=== PATIENT | female | born 1930 | race Hispanic/Latino ===

== ENCOUNTER 2017-12-07 14:05 | Inpatient (IN) | payer MEDICARE, OTHER ==
[2017-12-07 15:05] LABS: INR-International Normal Ratio 1.3; PTT 31.7 SEC (22.9-36.1); Prothrombin Time 16.1 SEC (12.0-14.7)
[2017-12-07 15:09] LABS: Hemoglobin 9.7 g/dL (12.0-16.0); Mean Corpuscular Hemoglobin 31.1 pg (27.0-31.0); Mean Platelet Volume 13.9 fL (7.4-10.4); Platelet Count 15 thou/uL (130-400); RBC Distribution Width 13.4 % (11.5-14.5); Red Blood Cell (RBC) Count 3.12 mill/uL (4.20-5.40); White Blood Cell (WBC) Count 22.9 thou/uL (4.8-10.8)
[2017-12-07] MEDS ORDERED: Ondansetron HCl/PF 4 MG/2 ML Vial ONE (15:11)
[2017-12-07 15:19] LABS: ALT (SGPT) Less than 7 U/L (8-55); AST (SGOT) 15 U/L (5-34); Albumin 3.9 g/dL (3.4-4.8); Alkaline Phosphatase 66 U/L (40-150); Anion Gap 15 mmol/L (10-20); BUN (Urea Nitrogen) 48 mg/dL (9.8-20.1); Bilirubin, Total 0.5 mg/dL (0.2-1.2); CK (CPK) 38 U/L (29-168); Calc. Creatinine Clearance 0 mL/min (70-130); Calcium 9.4 mg/dL (7.8-10.44); Carbon Dioxide 29 mmol/L (23-31); Chloride 92 mmol/L (98-107); Estimated GFR-MDRD 17; Globulin 3.5 g/dL (2.4-3.5); Glucose 126 mg/dL (83-110); Lipase Less than 4 U/L (8-78); Potassium 5.3 mmol/L (3.5-5.1); Protein, Total 7.4 g/dL (6.0-8.3); Sodium 131 mmol/L (136-145)
--- NOTE | 2017-12-07 15:21 | RAD ---
CHEST 1 VIEW: Date: 12/07/17 HISTORY: 87-year-old female with altered mental status, with abdominal pain, nausea, body aches, chills, and d ifficulty and frequent urination. FINDINGS: Monitor leads overlie the chest. There is cardiomegaly with bilateral vascular congestion, interstiti al edema, and pleural effusions, evidence for congestive heart failure. IMPRESSION: Evidence for congestive heart failure. POS: MAITE
[2017-12-07 15:23] LABS: CKMB 2.2 ng/mL (0-6.6)
[2017-12-07 15:24] LABS: Band 5 % (5-11); Lymphocytes 10 % (21-51); MDiff Complete? YES; Monocytes 23 % (0-10); Myelocyte 1 % (0-0); Neutrophil 61 % (42-75); PLT Morphology Comment Appears Decreased; Polychromasia SLIGHT = 2-3 cells (100X) (0-2/hpf)
[2017-12-07 15:29] LABS: Troponin I 0.601 ng/mL (< 0.028)
[2017-12-07 17:13] LABS: Bilirubin Small (Negative); Blood, Urine Negative (Negative); Clarity CLOUDY (Clear); Glucose, Urine (Dipstick) Negative (Negative); Leukocyte Moderate (Negative); Nitrite Negative (Negative); Protein, Urine (Dipstick) 100 mg/dL (Neg-Trace); Specific Gravity, Urine 1.022 (1.002-1.036); Urobilinogen 0.2 mg/dL (0.2-1.0); pH, Urine 5.5 (5.0-9.0)
[2017-12-07 17:15] LABS: Pathc Cast-AUWi Flag 2.71 (0-2.49); Squamous Epithelial 0-3 HPF (0-3); Yeast-AUWi Flag 126.9 (0-25.0)
[2017-12-07] MEDS ORDERED: Furosemide 40 MG/4 ML VIAL ONE (17:15)
[2017-12-07 17:25] LABS: Bacteria/HPF 1+ HPF (None Seen); Hyaline Casts/LPF NONE SEEN LPF (0-3 Hyaline); Yeast-All Forms 1+ HPF (None Seen)
[2017-12-07 17:26] LABS: Manual Microscopic Reviewed? No Path Casts Seen
--- NOTE | 2017-12-07 17:49 | CT ---
CT HEAD NONCONTRAST: 12/07/17 HISTORY: Altered mental status. Headache. FINDINGS: No comparison. There is no evidence of acute intracranial hemorrhage or infarct. A large wedge shaped area of decreased density through the posterior aspect of the right temporal lobe has the appearance of encephalomalacia. Chronic ischemic small vessel disease is apparent within the periventricular wh ite matter of each cerebral hemisphere. There is no mass effect or shift of midline structures. Chron ic appearing mucosal thickening is partially visualized at the inferior aspect of the left mastoid ai r cells. Small mucous retention cyst within the sphenoid sinus. 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 No acute intracranial abnormalities are demonstrated on noncontrast CT head. POS: H
[2017-12-07 18:24] LABS: Critical Call Chem Troponin I RESULT DECREASING; Troponin I 0.511 ng/mL (< 0.028)
--- NOTE | 2017-12-07 19:15 | CT ---
ABDOMEN AND PELVIC CT SCAN WITHOUT IV CONTRAST: 12/07/17 HISTORY: 87-year-old female with history of abdominal pain, nausea, bodyaches, chills with difficulty urinatin g and frequent urination. There is evidence of cardiomegaly with bilateral pleural effusions and some parenchymal changes in th e lower lobes probably related to some atelectasis. Probably representing some degree of congestive h eart failure. There is a moderate sized hiatal hernia. There are multiple opacities in the dependent portion of the gallbladder most consistent with gallstones without evidence for significant gallbladd er wall thickening or pericholecystic abnormal fat stranding. The kidneys are small bilaterally witho ut evidence of renal hydronephrosis. There is an approximately 1.8 cm diameter cyst off the posterior aspect of the upper pole of the left kidney. No evidence for large or small bowel obstruction. There is some surgical clips in the pelvis including around the region of the ileocecal valve and adjacent to the cecum. No CT evidence for acute appendicitis. Scattered colonic diverticulosis without acute diverticulitis. No renal calculus or acute obstruction. The visualized bladder appears unremarkabl e. IMPRESSION: Moderate bilateral pleural effusions and bibasilar pulmonary parenchymal changes with evidence for ca rdiomegaly which certainly can be seen in congestive heart failure. Multiple gallstones within the ga llbladder without evidence for ductal dilatation or overt gallbladder wall thickening or pericholecys tic fat stranding. No renal calculus or obstruction. Left upper pole renal cyst. Sigmoid colon div erticulosis without diverticulitis. No CT evidence for acute appendicitis. Other findings as above. POS: [facility]ITE
[2017-12-07] MEDS ORDERED: Ondansetron HCl/PF 4 MG/2 ML Vial IVP PRN (20:49)
[2017-12-07] MEDS ORDERED: Sodium Chloride 0.9% 1,000 ML IV SCH (20:49)
[2017-12-07] MEDS ORDERED: Ondansetron ODT 4 MG TAB SL PRN (20:49)
--- NOTE | 2017-12-07 21:06 | CON ---
DATE OF CONSULTATION: 12/07/2017 CONSULTING PHYSICIAN: Nathalia Hoffman M.D. REQUESTING PHYSICIAN: ER physician. REASON FOR CONSULTATION: Recurrent urinary tract infection, mental status change in a patient with m oderately advanced chronic kidney disease. IMPRESSION: 1. Acute on chronic kidney disease. This is likely hemodynamically mediated in the context of cardi orenal syndrome plus or minus cytokine-mediated injury. 2. Hyponatremia, possibly dilutional hyponatremia in the context of congestive heart failure. 3. Hyperkalemia related to advanced chronic kidney disease. 4. Recurrent urinary tract infection on several antibiotics. 5. Mental status change, possibly related to recurrent urinary tract infection. PLAN: 1. Urine cultures have been sent, but I would not be surprised if the culture does not grow out any significant organism having been on several antibiotics; therefore, we will recommend IV antibiotics based on the sensitivity from the urine culture of 2017 or thereabouts. 2. Renally dose all medications and avoid potentially nephrotoxic agents. 3. The patient likely to benefit from gentle diuresis. 4. There is no emergent indication for dialytic intervention and hopefully will avoid this in this p atient that is frail and advancing age. HISTORY OF PRESENT ILLNESS: This is an 87-year-old female patient, who was recently in my office wit h the complaint of recurrent urinary tract infection symptoms and also some difficulty with urination . Patient was started on amoxicillin, Macrobid, and developed some dry heaves at home. Due to the d ry heaves, has not been eating very well with reduction of urinary output. Home health nurse w ent to a possible catheterization, but patient refused, and mental status change was also noted. Bola frances was then taken to have the patient present to the ER for further management. On presentation, patient was noted with some electrolyte abnormalities as well as elevated BNP. The renal function se ems to have declined a little bit. Given the constellation of these findings, decision has been take n to involve Renal in the management of this case. PAST MEDICAL HISTORY: Significant for, 1. Myelodysplastic syndrome with persistent thrombocytopenia. 2. Hypertension. 3. Moderately advanced chronic kidney disease with a baseline creatinine of about 2. MEDICATIONS: Medications have been reviewed and as documented on [facility]. ALLERGIES: Could not be substantiated at this point. FAMILY HISTORY: Not significant related to presenting illness. SOCIAL HISTORY: Denies alcohol, tobacco, or illicit drug use. REVIEW OF SYSTEMS: As documented in the body of the history. All the other systems were reviewed an d found not to be significantly related to presenting illness. PHYSICAL EXAMINATION: GENERAL: The patient was found to be ill-looking with stable vital signs. Afebrile. HEENT: Remarkable for dry mucosa. CARDIOVASCULAR SYSTEM: First and second heart sounds were heard. RESPIRATORY SYSTEM: Clear to auscultation anteriorly. DIGESTIVE SYSTEM: Revealed an obese abdomen. EXTREMITIES: Showed peripheral edema. NEUROLOGIC: Alert, no lateralizing signs. LYMPHATICS: No peripheral lymphadenopathy. SKIN: Did reveal evidence of bruises likely in the context of thrombocytopenia. SUMMARY: An 87-year-old female patient with advanced chronic kidney disease, who does have issues wi th recurrent urinary tract infection, presented here and noted to have acute on chronic kidney diseas e. Thank you for this consultation. We will follow with you.
[2017-12-07 21:07] LABS: Critical Call Chem Troponin I RESULT DECREASING; Troponin I 0.477 ng/mL (< 0.028)
[2017-12-07] MEDS ORDERED: Furosemide 100 MG/10 ML VIAL SLOW IVP SCH (23:30)
[2017-12-08] MEDS ORDERED: Vancomycin HCl 1.25 GM in Sodium Chloride 0.9% 250 ML 250 ML IVPB SCH (01:15)
[2017-12-08] MEDS ORDERED: Fluconazole In NaCl,Iso-Osm 200 MG in Premix Bag 1 BAG IVPB SCH (01:15)
--- NOTE | 2017-12-08 02:01 | HP ---
REASON FOR ADMISSION: Acute respiratory failure with hypoxia, sepsis, urinary tract infection, possible DIC, acute kidney injury with history of chronic kidney disease, CHF exacerbation, demand ischemia, severe thrombocytopenia likely due to myelodysplastic disorder. HISTORY OF PRESENTING ILLNESS: Please note majority of this history is obtained by talking to ER physician, Dr. Sloan's consultation note, as patient is not oriented and barely tells me her name. Per ER records, patient was brought to emergency room for complaints of abdominal pain, nausea, body aches, chills, and frequency of urination. She was being recently treated for urinary tract infection and had taken Macrobid and Bactrim for the same. She has had some allergic reaction to the same. She has also recently followed up with Dr. Sloan as well. Patient also developed altered mentation at home and was essentially brought here for further evaluation. Lab work revealed a platelet count of 15, white count of 22, elevated PT of 16, BUN 48, creatinine 2.6. BNP of 2727, troponin of 0.6, and UA being positive for UTI. PAST MEDICAL AND SURGICAL HISTORY: Likely chronic kidney disease, recurrent urinary tract infections, myelodysplastic syndrome, hypertension, CKD stage 3, 4 likely old right posterior middle cerebral artery infarct, cholelithiasis, sigmoid diverticulosis. CURRENT MEDICATIONS: Per records, patient is on alprazolam 0.25 mg twice daily p.r.n., amitriptyline 50 mg p.o. at bedtime, was on amoxicillin 500 mg p.o. q.12 hourly for likely urinary tract infection, Coreg 6.25 mg twice daily, Zyrtec 10 mg p.r.n., vitamin D 3000 units p.o. twice daily, vitamin B12 of 1000 mcg p.o. daily, escitalopram 10 mg p.o. q.a.m., Synthroid 150 mcg p.o. daily, magnesium 250 mg p.o. at bedtime, multivitamin 1 tab once daily, omeprazole 20 mg daily, Zofran p.r.n., Crestor 5 mg p.o. q.a.m., Senokot 8.6 mg p.o. daily. ALLERGIES: CODEINE. PERSONAL HISTORY: Cannot be obtained as patient is not oriented. FAMILY HISTORY: Cannot be obtained as patient is not oriented. REVIEW OF SYSTEMS: Cannot be obtained as patient is not oriented. PHYSICAL EXAMINATION: GENERAL: Patient is an 87-year-old female who is currently in moderate respiratory distress. VITAL SIGNS: Blood pressure 120/80, pulse 78 per minute, respiratory rate 22 per minute, temperature 97.6 degrees Fahrenheit, saturating 94% on 3 liters nasal cannula. NECK: Supple. No elevated JVD. HEENT: Extraocular muscles intact. Pupils reacting to light. Oral cavity, mucous membranes are dry. No exudates or congestion. CARDIOVASCULAR SYSTEM: S1, S2 heard. S3 plus. RESPIRATORY SYSTEM: Air entry 1+ bilateral. Scattered rales plus bilateral rhonchi plus bilateral. ABDOMEN: Soft, bowel sounds heard. No tenderness, rigidity, or guarding. EXTREMITIES: Patient has multiple contusions over right suprascapular area. She also has some contusions in the right line area per nurse, has 2+ peripheral edema. Patient has extremely tender to touch her lower extremities. VASCULAR SYSTEM: Peripheral pulses are 1+ bilateral. No ischemic ulcerations or gangrene. CENTRAL NERVOUS SYSTEM: Patient has reflex withdrawal for both lower extremities on Babinski strokes. No gross focal signs seen. Patient is encephalopathic at present, barely responds to her name. PSYCHIATRIC: Cannot be assessed due to patient's current cognitive status. LABORATORY DATA AND X-RAY FINDINGS: Urinalysis shows moderate leukocyte esterase, greater than 50 wbcs, 1+ bacteria and yeast. PT 16, INR 1.3. Sodium 131, potassium 5.3, BUN 48, creatinine 2.6. Serum glucose 126. Liver enzymes within normal limits. CK-MB 2.2, troponin I 0.60. BNP is 2727. Albumin is 3.9. Lipase is less than 4. White count of 22.9, H&H 9 and 31, MCV is 100, platelet count is 15 with 61% neutrophils with 5% bands with reversal of lymphocytes-monocytes ratio with 10% lymphocytes and 23% monocytes. EKG done shows atrial fibrillation at 103 beats per minute. There is also T inversions seen in anterolateral leads. There is Q-wave seen in V1, V2, V3. CLINICAL IMPRESSION AND PLAN: Patient will be admitted to the telemetry for sepsis; urinary tract infection; severe thrombocytopenia likely due to underlying myelodysplastic disease versus disseminated intravascular coagulation ; acute kidney injury on top of chronic kidney disease stage 3, 4; acute congestive heart failure exacerbation, it is unclear if this is new; demand ischemia; acute respiratory failure with hypoxia. She was given 40 mg of Lasix in the ER and will give one dose of 80 mg Lasix x1 dose in view of patient requiring oxygen and is in moderate respiratory distress. We will also continue 40 mg IV q.6 hourly x4 doses. She will be on broad-spectrum antibiotic including antifungal with fluconazole. We will place her on meropenem, vancomycin, and fluconazole for now. Blood and urine cultures have been obtained, and we will follow up on that. Echo with 2D Doppler for LV function, ultrasound venous Doppler to rule out deep venous thrombosis at disseminated intravascular coagulation panel. The patient's overall prognosis is guarded at present. I have tried to call Ms. Grisel Price, patient's POA and daughter. The number to reach is [phone] and being unable to reach her. I have tried calling Ms. Abby Dodd at [phone], her second daughter and have not been able to reach her on this as well. Like I said before, her overall prognosis is guarded with multiple organ involvements at present. She is also encephalopathic at present. The two daughters have informed patient's nurse that they want her mom to be DO NOT RESUSCITATE and the same will be honored. They will be bringing her advance directives/document shortly from home. A consult has been placed for Dr. Escobar and Dr. Sloan and we will also consult Dr. Payne for help with her sepsis with acute congestive heart failure, the combination with acute kidney injury as well. Please note, I have seen and examined patient on 12/07/2017. NURYS
[2017-12-08 02:02] LABS: Fibrinogen 500 mg/dL (253-463)
[2017-12-08 02:03] LABS: INR-International Normal Ratio 1.3; PTT 34.4 SEC (22.9-36.1); Prothrombin Time 16.4 SEC (12.0-14.7)
[2017-12-08 02:04] LABS: D-Dimer Test 1.88 *mcg/mL (0.27-0.43)
[2017-12-08 02:06] LABS: FSP-Qualitative ABNORMAL (Normal); FSP-Semiquantitative >=5 & <20 mcg/mL (Less than 5)
[2017-12-08 02:07] LABS: Platelet Count 35 thou/uL (130-400)
[2017-12-08 04:46] LABS: Mean Corpuscular HGB CONC 30.6 g/dL (32.0-36.0); Mean Corpuscular Hemoglobin 31.4 pg (27.0-31.0); Mean Platelet Volume 13.1 fL (7.4-10.4); Platelet Count 22 thou/uL (130-400); RBC Distribution Width 13.3 % (11.5-14.5); Red Blood Cell (RBC) Count 2.88 mill/uL (4.20-5.40); White Blood Cell (WBC) Count 22.9 thou/uL (4.8-10.8)
[2017-12-08 04:49] LABS: Band 2 % (5-11); Large Platelets SLIGHT; Lymphocytes 13 % (21-51); MDiff Complete? YES; Metamyelocyte 1 % (0-0); Monocytes 18 % (0-10); Myelocyte 1 % (0-0); Neutrophil 65 % (42-75); PLT Morphology Comment Appears Decreased; Vacuoles SLIGHT
[2017-12-08 05:16] LABS: ALT (SGPT) Less than 7 U/L (8-55); AST (SGOT) 14 U/L (5-34); Albumin 3.4 g/dL (3.4-4.8); Alkaline Phosphatase 59 U/L (40-150); Anion Gap 15 mmol/L (10-20); BUN (Urea Nitrogen) 51 mg/dL (9.8-20.1); Bilirubin, Total 0.4 mg/dL (0.2-1.2); Calc. Creatinine Clearance 20 mL/min (70-130); Calcium 8.6 mg/dL (7.8-10.44); Carbon Dioxide 25 mmol/L (23-31); Chloride 96 mmol/L (98-107); Estimated GFR-MDRD 18; Glucose 100 mg/dL (83-110); Potassium 4.6 mmol/L (3.5-5.1); Protein, Total 6.4 g/dL (6.0-8.3); Sodium 131 mmol/L (136-145)
[2017-12-08] MEDS ORDERED: Sodium Chloride 0.9% 10 ML ONE ×2 (05:42→20:45)
[2017-12-08] MEDS: Levothyroxine 150 MCG TAB PO SCH (05:53)
[2017-12-08] MEDS: Furosemide 40 MG/4 ML VIAL SLOW IVP SCH ×4 (05:53→23:21)
[2017-12-08] MEDS ORDERED: Meropenem 500 MG in Sodium Chloride 0.9% 100 ML IVPB SCH (06:00)
[2017-12-08] MEDS ORDERED: MEROPENEM IVPB SCH (06:00)
--- NOTE | 2017-12-08 07:44 | ULT ---
BILATERAL LOWER EXTREMITY VENOUS DUPLEX ULTRASUND INCLUDING COLOR AND SPECTRAL DOPPLER IMAGING: HISTORY: An 87-year-old female with pain in both lower extremities. FINDINGS: Exam was limited because of the patient's inability to cooperate. The popliteal region could be eval uated because the patient would not extend her legs. Additionally, compression views were very limit ed due to patient motion because of pain. Exam performed from groin to ankle including visualized greater saphenous, common femoral, superficia l femoral, trifurcation, and posterior tibial vein regions. The popliteal regions were inaccurately evaluated because the patient would not extend her legs to allow visualization of the popliteal regio n. There was normal compression and augmentation in the visualized segments. No intraluminal thromb us. IMPRESSION: Somewhat incomplete limited study because of poor patient cooperation. No evidence for deep venous t hrombosis demonstrated. If patient has persistent size or symptoms concerning for deep vein thrombosis, a followup study when the patient can completely cooperate might be considered. POS: [facility]ITE
[2017-12-08] MEDS ORDERED: Famotidine/PF 20 mg/2ml Vial SLOW IVP SCH (09:00)
[2017-12-08] MEDS: Carvedilol 3.125 MG TAB PO SCH ×2 (09:56→21:38)
[2017-12-08] MEDS: Escitalopram Oxalate 10 mg Tablet PO SCH (09:56)
[2017-12-08] MEDS: Rosuvastatin 5 MG TAB PO SCH (10:18)
[2017-12-08] MEDS: Famotidine 40 MG/4 ML VIAL SLOW IVP SCH (10:21)
[2017-12-08] MEDS ORDERED: Cefepime 2 GM in Sodium Chloride 0.9% 100 ML IVPB SCH (12:15)
[2017-12-08] MEDS: Cefepime 2 GM, Syringe 2.5 ML in Sodium Chloride 0.9% 10 ML SLOW IVP SCH (13:13)
--- NOTE | 2017-12-08 13:52 | CON ---
DATE OF CONSULTATION: 12/08/217 REASON FOR CONSULTATION: Myelodysplastic syndrome. HISTORY OF PRESENT ILLNESS: Ms. Doe is an 87-year-old female who presented to the emergency room f or altered mental status. She was diagnosed with a urinary tract infection several days ago and was on antibiotics. She was having body aches and chills in the emergency room. She was confused, so wa s admitted for sepsis and urinary tract infection. CBC in the ER showed a white count of 22.9. Her hemoglobin was 9.7 and her platelet count was 15,000. She did have 61% neutrophils, 5% bands, 10% ly mphocytes, and 23% monocyte. The patient was admitted at [facility] in September nd noted to be pancytopenic at that time. She then followed up with Dr. Escobar, who felt that she had a myeloproliferative or myelodysplastic syndrome with persistent leukocytosis. She had thrombocy topenia and anemia in 10/2017 when we saw the patient in the clinic. Her white count was 18.3, her h emoglobin was 9.5 and her platelet count was 55,000. Flow cytometry showed 0.29% myeloblasts. The d ecision was made to follow the patient and provide supportive care. No bone marrow was done. Since admission, she has been started on IV antibiotics. Her mentation has slightly improved, but she stil l remains confused. Her platelets have been stable and are now 22,000. She has no evidence of bleed ing, but she does have scattered bruising on her arms and shoulders. PAST MEDICAL HISTORY: 1. Myelodysplastic syndrome. 2. Hypertension. 3. Coronary artery disease. 4. Atrial fibrillation. 5. Dyslipidemia. 6. Osteoarthritis. 7. Depression. 8. History of uterine cancer with hysterectomy in 1989. 9. History of stroke. 10. Chronic renal insufficiency. 11. Hypothyroidism. 12. Acid reflux. 13. Hearing loss. PAST SURGICAL HISTORY: 1. Hysterectomy. 2. Bilateral cataract surgery. 3. Cardiac catheterization. 4. Tonsillectomy. ALLERGIES: CODEINE. HOME MEDICATIONS: 1. Alprazolam 0.25 mg p.r.n. 2. Amitriptyline daily. 3. Coreg 6.25 mg b.i.d. 4. Vitamin D daily. 5. B12 daily. 6. Citalopram 10 mg daily. 7. Synthroid 150 mcg daily. 8. Magnesium daily. 9. Prilosec 20 mg daily. 10. Zofran p.r.n. 11. Senokot daily. FAMILY HISTORY: No history of leukemia. SOCIAL HISTORY: She is . She lives alone. She is a former smoker. No alcohol or illicit dr ug use. REVIEW OF SYSTEMS: Defer secondary to altered mental status, although the patient does deny pain. PHYSICAL EXAMINATION: VITAL SIGNS: Temperature is 98.7, pulse is 103, respiratory rate is 21, BP is 118/63. She is 96% on 3 liters. GENERAL: This is a chronically ill-appearing female, in no acute distress. HEENT: Normocephalic, atraumatic. Pupils equal and reactive to light. NECK: Supple. CARDIOVASCULAR: Irregular rate and rhythm. LUNGS: Clear. ABDOMEN: Soft, nontender, bowel sounds are positive. EXTREMITIES: There is no clubbing, cyanosis or edema. SKIN: No rash. HEMATOLOGIC: She has scattered bruising on her arms, chest and shoulders. No petechiae. NEUROLOGIC: Nonfocal. PSYCHIATRIC: The patient is oriented to person only. PERTINENT LABORATORY AND X-RAYS: Current WBCs are 22.9, hemoglobin 9.0, hematocrit 29.5, platelet co unt is 22,000. She has 65% neutrophils, 2% bands, 30% lymphocytes, 18% monocytes. She has got 1 mye locyte. PT is 16.4, INR is 1.3, PTT is 34.4. Sodium is 131, potassium 4.6, chloride 96, CO2 is 25, BUN is 51, creatinine 2.54. Lactic acid is 1.3, calcium is 8.6, bilirubin is 0.4, AST is 14, ALT is less than 7. Alkaline phosphatase is 59. Troponin is 0.477. Serum total protein 6.4, albumin 3.4, globulin 3. Urine had 1+ bacteria. Stool for occult blood was negative. ASSESSMENT: 1. Myelodysplastic syndrome with persistent leukocytosis, anemia, and thrombocytopenia. 2. Urinary tract infection. 3. Altered mental status likely secondary to #2. DISCUSSION: The patient's platelets have dropped slightly since we have seen her in the clinic in [facility], do not think this is transformation to leukemia. However, we will check a CBC daily. This i s much more likely consumptive due to her chronic urinary tract infection. We would recommend no tra nsfusion of platelets, unless she has evidence of bleeding. We will again follow her CBC while she i s in the hospital and she can follow up in the outpatient setting. Thank you for the consult.
--- NOTE | 2017-12-08 14:07 | PRG ---
DATE OF SERVICE: 12/08/2017 SUBJECTIVE: The patient is seen and examined, very agitated, seems somewhat confused, noted with the following. PHYSICAL EXAMINATION: VITAL SIGNS: Afebrile, temperature 97, pulse 103, respiratory rate 21, O2 sat 96% on 3 liters, and b lood pressure 118/63. HEENT: Unremarkable. Moist oral mucosa. Neck was supple. No conjunctival injection or icterus. CARDIOVASCULAR SYSTEM: First and second heart sounds were heard. RESPIRATORY SYSTEM: Clear to auscultation with some occasional scattered wheeze. DIGESTIVE SYSTEM: Revealed an obese abdomen. EXTREMITIES: Showed peripheral edema. SKIN: Showed evidence of recent and old bruises. LABORATORY INVESTIGATION: Showed a white count 22,900, hemoglobin 9, platelet of 22,000. Chemistry showed sodium of 131, BUN of 51, creatinine 2.54, and uric acid of 11.2. IMPRESSION: 1. Acute on chronic kidney disease. 2. Hypervolemia. 3. Recurrent urinary tract infection in the context of immunosuppression. 4. Mental status change. 5. Hyperuricemia. PLAN: 1. We will continue with gentle diuresis. 2. Renally dose all medications and I will continue to avoid potentially nephrotoxic agents. 3. Further management to be dependent on the clinical course.
--- NOTE | 2017-12-08 21:18 | CON ---
DATE OF CONSULTATION: 12/08/2017 HISTORY: Brook is an 87-year-old female who was brought to the emergency room with complaints of shortness of breath, chills, abdominal pain, frequency of urination. She has chronic kidney disease. She has had an altered mentation at home and also has myelodysplastic syndrome. At the present time, she denies any shortness of breath or chest discomfort. PAST MEDICAL HISTORY: Myelodysplastic syndrome followed by Dr. Escobar, hypertension, chronic kidney disease, history of right posterior middle cerebral artery infarct, cholelithiasis, diverticulosis, frequent urinary infections. MEDICATIONS: Alprazolam 0.25 b.i.d. p.r.n., amitriptyline 50 daily at bedtime, amoxicillin 500 q.12h, Carvedilol 6.25 b.i.d., Zyrtec p.r.n., Synthroid 150 mcg daily, magnesium 250 daily, omeprazole 20 q.a.m., Zofran 4 mg p.r.n., Crestor 5 mg daily, Senokot 1 tablet p.r.n. ALLERGIES: None. SOCIAL HISTORY: Cannot be obtained. FAMILY HISTORY: Cannot be obtained. REVIEW OF SYSTEMS: Cannot be obtained, due to her dementia. PHYSICAL EXAMINATION: VITAL SIGNS: 118/66, pulse of 87. HEENT: PERRL. NECK: Supple. CHEST: Clear. CARDIAC: S1, S2 normal, without any S3, S4 or murmurs. ABDOMEN: Normal bowel sounds, without tenderness, organomegaly. EXTREMITIES: Revealed 1-2+ pretibial edema. NEUROLOGIC: The patient is confused. SKIN: The patient has multiple ecchymosis over all of her body. LABORATORY AND IMAGING DATA: EKG reveals atrial fibrillation with low voltage, nonspecific ST and T-wave changes, poor R-wave progression. Echocardiogram reveals left pleural effusion , technically difficult to study, ejection fraction of 50-55% with hypokinesis of the septum, moderate left atrial enlargement, moderate mitral regurgitation, aortic valvular sclerosis, mild aortic regurgitation and moderate to severe tricuspid regurgitation. Chest x-ray revealed cardiomegaly with bilateral vascular congestion, interstitial edema and pleural effusions. White count 22,900, hemoglobin 9.0, hematocrit 29.5, platelets 22,000. INR 1.3 , sodium 131, potassium 4.6, chloride 96, carbon dioxide 25, BUN 51, creatinine 2.54, troponin I 0.511. IMPRESSION: 1. Probable sepsis. 2. Acute on chronic diastolic heart failure. 3. Chronic kidney disease. 4. Hypertension. 5. Hyperlipidemia. 6. History of CVA. 7. Chronic atrial fibrillation 8. Myelodysplastic syndrome. 9. The patient is do not resuscitate. 10. Demand ischemia. PLAN: I am certain that she has some degree of diastolic dysfunction with her chronic atrial fibrillation. Overall systolic function is well preserved except for hypokinesis of the septum. I agree with gentle diuresis as you are doing. Certainly this with her myelodysplastic syndrome, her long-term prognosis is poor. NURYS
[2017-12-08] MEDS: Acetaminophen 325 MG TAB PO PRN (21:37)
[2017-12-08] MEDS: Nystatin Powder 15 GM BOT TOP SCH (21:38)
--- NOTE | 2017-12-08 22:24 | PDOC.PN ---
- Subjective Encounter Start Date: 12/08/17 Encounter Start Time: 12:40 Pt seen adn examined, chart reviewed in its entirety, this is my first visit with this patient Pt awake and alert and clearly confused. No acute events since admit, no n/v/d/ c, no CP, no reports of SOB. very agitated Family at bedside, and updated to finsings and plans. ROS attmepted, but pt confused - Objective Resuscitation Status: Resuscitation Status DNR:Do Not Resuscitate MAR Reviewed: Yes Vital Signs & Weight: Vital Signs (12 hours) Temp Pulse Resp BP Pulse Ox 12/08/17 19:53 97.8 F 102 H 20 127/81 97 12/08/17 19:45 87 16 100 12/08/17 16:00 97.8 F 107 H 15 118/66 98 12/08/17 14:13 96 20 12/08/17 12:00 98.7 F 103 H 21 H 118/63 96 Weight Admit Weight 184 lb 8 oz Weight 182 lb 3.2 oz I&O: 12/07/17 12/08/17 12/09/17 06:59 06:59 06:59 Intake Total 542 Output Total 750 Balance -208 Result Diagrams: 12/09/17 03:54 12/09/17 03:54 Radiology Reviewed by me: Yes EKG Reviewed by me: Yes Phys Exam - Physical Examination Constitutional: NAD HEENT: PERRLA, moist MMs, sclera anicteric, oral pharynx no lesions Neck: no nodes, no JVD, supple, full ROM Respiratory: no wheezing, no rhonchi bibasilar crackles Cardiovascular: RRR, no significant murmur, no rub Gastrointestinal: soft, non-tender, no distention, positive bowel sounds Musculoskeletal: pulses present, edema present Neurological: non-focal, moves all 4 limbs Lymphatic: no nodes Deviation from normal: alert, oriented to person only Skin: no rash, normal turgor, cap refill <2 seconds Dx/Plan (1) UTI (urinary tract infection) Status: Acute Qualifiers: Urinary tract infection type: acute cystitis Hematuria presence: without hematuria Qualified Code(s): N30.00 - Acute cystitis without hematuria (2) Metabolic encephalopathy Code(s): G93.41 - METABOLIC ENCEPHALOPATHY Status: Acute (3) Sepsis Code(s): A41.9 - SEPSIS, UNSPECIFIED ORGANISM Status: Acute Qualifiers: Sepsis type: sepsis due to unspecified organism Qualified Code(s): A41.9 - Sepsis, unspecified organism (4) MDS (myelodysplastic syndrome) Code(s): D46.9 - MYELODYSPLASTIC SYNDROME, UNSPECIFIED Status: Chronic Comment: followed by Dr Escobar, Rivka Celaya has seen, following. (5) ILYA (acute kidney injury) Code(s): N17.9 - ACUTE KIDNEY FAILURE, UNSPECIFIED Status: Acute Comment: IV fluids, watch. Dr Hoffman following - Plan cont current plan of care, plan discussed w/ family, continue antibiotics, PT/OT * . no DVT prophylasix with lovenix due to low platelets form MDS
[2017-12-09] MEDS ORDERED: Sodium Chloride 0.9% 10 ML ONE ×3 (01:27→20:24)
[2017-12-09] MEDS: NACL ISO OSM IVPB SCH (01:31)
[2017-12-09] MEDS: FLUCONAZOLE IVPB SCH (01:31)
[2017-12-09] MEDS: ADMIXTURE FEE IVPB SCH (01:31)
[2017-12-09 05:08] LABS: Vancomycin, Random 10.9 ug/mL (See Comment)
[2017-12-09 05:13] LABS: ALT (SGPT) Less than 7 U/L (8-55); AST (SGOT) 12 U/L (5-34); Albumin 3.2 g/dL (3.4-4.8); Alkaline Phosphatase 55 U/L (40-150); Anion Gap 16 mmol/L (10-20); BUN (Urea Nitrogen) 52 mg/dL (9.8-20.1); Bilirubin, Total 0.4 mg/dL (0.2-1.2); Calc. Creatinine Clearance 19 mL/min (70-130); Calcium 8.2 mg/dL (7.8-10.44); Carbon Dioxide 25 mmol/L (23-31); Chloride 93 mmol/L (98-107); Estimated GFR-MDRD 17; Globulin 2.8 g/dL (2.4-3.5); Glucose 113 mg/dL (83-110); Magnesium 2.5 mg/dL (1.6-2.6); Potassium 4.2 mmol/L (3.5-5.1); Sodium 130 mmol/L (136-145)
[2017-12-09] MEDS ORDERED: Vancomycin HCl 1 GM in Premix Bag 1 BAG IVPB SCH (06:00)
[2017-12-09] MEDS: Levothyroxine 150 MCG TAB PO SCH (06:31)
[2017-12-09 06:46] LABS: Band 6 % (5-11); Hemoglobin 8.3 g/dL (12.0-16.0); Lymphocytes 4 % (21-51); MDiff Complete? YES; Mean Corpuscular HGB CONC 31.4 g/dL (32.0-36.0); Mean Corpuscular Hemoglobin 32.1 pg (27.0-31.0); Monocytes 12 % (0-10); Neutrophil 78 % (42-75); PLT Morphology Comment Appears Decreased; Platelet Count 46 thou/uL (130-400); Polychromasia SLIGHT = 2-3 cells (100X) (0-2/hpf); RBC Distribution Width 13.4 % (11.5-14.5); Red Blood Cell (RBC) Count 2.58 mill/uL (4.20-5.40)
[2017-12-09] MEDS: Nystatin Powder 15 GM BOT TOP SCH ×2 (09:40→20:40)
[2017-12-09] MEDS: Famotidine 40 MG/4 ML VIAL SLOW IVP SCH (09:41)
--- NOTE | 2017-12-09 13:55 | PDOC.PN ---
- Subjective Encounter Start Date: 12/09/17 Encounter Start Time: 10:45 Pt agitated overnight, kept fumbling for her foly, single soft restraint placed. No fever sor chills, no n/V/D/C, no D/C, no CP or SOB. Seems sleepier today then yesterday. no other acute events reported - Objective Resuscitation Status: Resuscitation Status DNR:Do Not Resuscitate MAR Reviewed: Yes Vital Signs & Weight: Vital Signs (12 hours) Temp Pulse Resp BP Pulse Ox 12/09/17 13:37 82 16 12/09/17 11:05 97.3 F L 92 16 138/86 98 12/09/17 08:45 97.3 F L 96 16 141/91 H 98 12/09/17 06:27 96 12/09/17 06:24 80 16 12/09/17 04:00 97.6 F 93 20 120/81 96 Weight Admit Weight 184 lb 8 oz Weight 180 lb 11.2 oz I&O: 12/08/17 12/09/17 12/10/17 06:59 06:59 06:59 Intake Total 542 569 Output Total 750 525 Balance -208 44 Result Diagrams: 12/09/17 03:54 12/09/17 03:54 Radiology Reviewed by me: Yes EKG Reviewed by me: Yes Phys Exam - Physical Examination Constitutional: NAD HEENT: PERRLA, moist MMs, sclera anicteric, oral pharynx no lesions Neck: no nodes, no JVD, supple, full ROM Respiratory: no wheezing, no rhonchi bibasilar crackels about the same Cardiovascular: RRR, no significant murmur, no rub Gastrointestinal: soft, non-tender, no distention, positive bowel sounds Musculoskeletal: pulses present, edema present Neurological: non-focal, normal sensation, moves all 4 limbs Lymphatic: no nodes Skin: no rash, normal turgor, cap refill <2 seconds Dx/Plan (1) UTI (urinary tract infection) Status: Acute Qualifiers: Urinary tract infection type: acute cystitis Hematuria presence: without hematuria Qualified Code(s): N30.00 - Acute cystitis without hematuria (2) Metabolic encephalopathy Code(s): G93.41 - METABOLIC ENCEPHALOPATHY Status: Acute (3) Sepsis Code(s): A41.9 - SEPSIS, UNSPECIFIED ORGANISM Status: Acute Qualifiers: Sepsis type: sepsis due to unspecified organism Qualified Code(s): A41.9 - Sepsis, unspecified organism (4) MDS (myelodysplastic syndrome) Code(s): D46.9 - MYELODYSPLASTIC SYNDROME, UNSPECIFIED Status: Chronic Comment: followed by Dr Escobar, Rivka Celaya has seen, following. (5) ILYA (acute kidney injury) Code(s): N17.9 - ACUTE KIDNEY FAILURE, UNSPECIFIED Status: Acute Comment: IV fluids, watch. Dr Hoffman following - Plan cont current plan of care, plan discussed w/ family, hallman catheter, continue antibiotics, PT/OT, respiratory therapy * . continue fluc, meropenem changed to cefepime by me yesterday. Will stop Vanc today. Ucx now with both yeast and a GNR pending ID and sens
[2017-12-09] MEDS: Escitalopram Oxalate 10 mg Tablet PO SCH (14:06)
[2017-12-09] MEDS: Rosuvastatin 5 MG TAB PO SCH (14:07)
[2017-12-09] MEDS: Carvedilol 3.125 MG TAB PO SCH ×2 (14:07→20:39)
[2017-12-09] MEDS: Cefepime 2 GM, Syringe 2.5 ML in Sodium Chloride 0.9% 10 ML SLOW IVP SCH (14:25)
[2017-12-09] MEDS: Acetaminophen 325 MG TAB PO PRN (20:39)
--- NOTE | 2017-12-09 23:24 | PRG ---
DATE OF SERVICE: 12/09/2017 The patient was seen and examined, very somnolent, noted with the following vital signs. PHYSICAL EXAMINATION: VITAL SIGNS: Afebrile with temperature 97.3, pulse 96, respiratory rate of 24, pulse of 93% on 3 lit ers with blood pressure 133/61. HEENT EXAMINATION: Unremarkable. CARDIOVASCULAR SYSTEM: First and second heart sounds were heard. RESPIRATORY SYSTEM: Clear to auscultation anteriorly. DIGESTIVE SYSTEM: Revealed an obese abdomen. EXTREMITIES: Shows some peripheral edema. NEUROLOGIC EXAMINATION: Patient is very somnolent, but no lateralizing sign. LABORATORY INVESTIGATION: Showed platelet count of 46,000, hemoglobin 8.3, white count of 21,000. C hemistry showed a sodium of 130, BUN of 52 with a creatinine of 2.6. IMPRESSION: 1. Acute on chronic kidney disease, likely cytokine-mediated plus or minus hemodynamically mediated injury. 2. Hyponatremia, likely in the context of dilutional hyponatremia. 3. Bi-cytopenia with a low hemoglobin and low platelets. PLAN: 1. We will continue with current renal supportive measures. 2. Continue to avoid potentially nephrotoxic agents and renally dose all medications. 3. Further management will be dependent on the clinical course.
[2017-12-10] MEDS ORDERED: Sodium Chloride 0.9% 10 ML ONE (02:27)
[2017-12-10] MEDS: NACL ISO OSM IVPB SCH (02:53)
[2017-12-10] MEDS: ADMIXTURE FEE IVPB SCH (02:53)
[2017-12-10] MEDS: FLUCONAZOLE IVPB SCH (02:53)
[2017-12-10] MEDS ORDERED: Vancomycin HCl 750 MG in Sodium Chloride 0.9% 250 ML 250 ML IVPB SCH (04:00)
[2017-12-10 04:54] LABS: Hemoglobin 8.9 g/dL (12.0-16.0); Mean Corpuscular HGB CONC 31.6 g/dL (32.0-36.0); Mean Corpuscular Hemoglobin 31.9 pg (27.0-31.0); Mean Platelet Volume 13.9 fL (7.4-10.4); Platelet Count 24 thou/uL (130-400); RBC Distribution Width 13.3 % (11.5-14.5); White Blood Cell (WBC) Count 18.5 thou/uL (4.8-10.8)
[2017-12-10 05:23] LABS: Anion Gap 13 mmol/L (10-20); BUN (Urea Nitrogen) 54 mg/dL (9.8-20.1); Calc. Creatinine Clearance 18 mL/min (70-130); Calcium 8.3 mg/dL (7.8-10.44); Carbon Dioxide 28 mmol/L (23-31); Chloride 95 mmol/L (98-107); Estimated GFR-MDRD 16; Glucose 120 mg/dL (83-110); Magnesium 2.7 mg/dL (1.6-2.6); Potassium 4.3 mmol/L (3.5-5.1); Sodium 132 mmol/L (136-145)
[2017-12-10 05:30] LABS: Band 2 % (5-11); Lymphocytes 5 % (21-51); MDiff Complete? YES; Monocytes 10 % (0-10); Myelocyte 1 % (0-0); Neutrophil 82 % (42-75); PLT Morphology Comment Appears Decreased; Polychromasia SLIGHT = 2-3 cells (100X) (0-2/hpf)
[2017-12-10] MEDS: Levothyroxine 150 MCG TAB PO SCH (07:33)
[2017-12-10] MEDS: Carvedilol 3.125 MG TAB PO SCH ×2 (09:38→20:38)
[2017-12-10] MEDS: Rosuvastatin 5 MG TAB PO SCH (09:38)
[2017-12-10] MEDS: Escitalopram Oxalate 10 mg Tablet PO SCH (09:39)
[2017-12-10] MEDS: Nystatin Powder 15 GM BOT TOP SCH ×2 (09:40→20:38)
[2017-12-10] MEDS: Famotidine 40 MG/4 ML VIAL SLOW IVP SCH (10:35)
[2017-12-10] MEDS: Cefepime 2 GM, Syringe 2.5 ML in Sodium Chloride 0.9% 10 ML SLOW IVP SCH (11:09)
--- NOTE | 2017-12-10 11:38 | PRG ---
DATE OF SERVICE: 12/10/2017 SUBJECTIVE: The patient was seen and examined, confused, noted with the following. PHYSICAL EXAMINATION: VITAL SIGNS: Afebrile with temperature 97.8, pulse 85, respiratory rate 20, O2 saturation 94%, and b lood pressure 128/68. HEENT: Unremarkable with moist oral mucosa. NECK: Supple, no conjunctival injection or icterus. CARDIOVASCULAR SYSTEM: First and second heart sounds were heard. RESPIRATORY SYSTEM: Clear to auscultation. DIGESTIVE SYSTEM: Revealed a benign abdomen with positive bowel sounds. EXTREMITIES: No peripheral edema. SKIN: No new gross rash. LYMPHATICS: No peripheral lymphadenopathy. EXTREMITIES: Showed some lower extremity edema. LABORATORY INVESTIGATIONS: Showed a creatinine of 2.73, BUN of 54. Sodium 132. CBC showed a white count of 18,500, hemoglobin 8.9, platelets 24,000. IMPRESSION: 1. Acute delirium. 2. Urinary tract infection, on treatment. 3. Acute on chronic kidney disease. 4. Advanced age. 5. Bicytopenia. PLAN: 1. The patient to continue with current management as per the primary team including the antibiotics and antifungal. 2. Renally dose all medications and avoid potentially nephrotoxic agents. 3. I will suggest moving this patient to the medical floor where patient will be in contact with the side wall visually as opposed to the current telemetry room, patient seems to be somewhat claustroph obic. 4. Further management to be dependent on the clinical course.
--- NOTE | 2017-12-10 12:47 | PDOC.PN ---
- Subjective Encounter Start Date: 12/10/17 Encounter Start Time: 11:45 pt extremely agitating and shouting out earlier, seen at the time by Dr Hoffman. Pt transferred to medicla floor, pt less claustrophobic and much more calm. No acute events overnight, no F/C, no N/V/D/C, eating well. no PT yet, will ask to eval. family at bedside, updated to plans and questions answered. 10 point ROS performed and neg for all systems except as per HPI - Objective Resuscitation Status: Resuscitation Status DNR:Do Not Resuscitate MAR Reviewed: Yes Vital Signs & Weight: Vital Signs (12 hours) Temp Pulse Resp BP Pulse Ox 12/10/17 10:35 97.5 F L 94 17 12/10/17 09:30 133/73 12/10/17 08:53 97.8 F 100 18 96 12/10/17 07:56 94 17 12/10/17 07:28 88 L 12/10/17 05:33 97.8 F 85 20 128/68 94 L Weight Admit Weight 184 lb 8 oz Weight 179 lb I&O: 12/09/17 12/10/17 12/11/17 06:59 06:59 06:59 Intake Total 569 285 120 Output Total 525 875 Balance 44 -590 120 Result Diagrams: 12/10/17 04:35 12/10/17 04:35 Phys Exam - Physical Examination Constitutional: NAD HEENT: PERRLA, moist MMs, sclera anicteric, oral pharynx no lesions Neck: no nodes, no JVD, supple, full ROM Respiratory: no wheezing, no rales, no rhonchi, clear to auscultation bilateral Cardiovascular: RRR, no significant murmur, no rub Gastrointestinal: soft, non-tender, no distention, positive bowel sounds Musculoskeletal: pulses present, edema present Neurological: non-focal, normal sensation, moves all 4 limbs Lymphatic: no nodes Psychiatric: normal affect Deviation from normal: awake, and much more alert today, oriented to person only Skin: no rash, normal turgor, cap refill <2 seconds Dx/Plan (1) UTI (urinary tract infection) Status: Acute Qualifiers: Urinary tract infection type: acute cystitis Hematuria presence: without hematuria Qualified Code(s): N30.00 - Acute cystitis without hematuria Comment: yeast and GNR so far. follow up ID and sensitivity. On cefepime and fluc. CCM (2) Metabolic encephalopathy Code(s): G93.41 - METABOLIC ENCEPHALOPATHY Status: Acute Comment: improved, but still present (3) Sepsis Code(s): A41.9 - SEPSIS, UNSPECIFIED ORGANISM Status: Acute Qualifiers: Sepsis type: sepsis due to unspecified organism Qualified Code(s): A41.9 - Sepsis, unspecified organism Comment: GNR adn yeast. covered. labs back to baseline except Cr (4) MDS (myelodysplastic syndrome) Code(s): D46.9 - MYELODYSPLASTIC SYNDROME, UNSPECIFIED Status: Chronic Comment: followed by Dr Escobar, Rivka Celaya has seen, following. WBC pre- admit at 18.8, 18.9 today (5) ILYA (acute kidney injury) Code(s): N17.9 - ACUTE KIDNEY FAILURE, UNSPECIFIED Status: Acute Comment: IV fluids, watch. Dr Hoffman following, Cr rise has slowed. - Plan cont current plan of care, plan discussed w/ family, hallman catheter, continue antibiotics, PT/OT, respiratory therapy, out of bed/ambulate, DVT proph w/ heparin * . D/C hallman. to Chair, PT/OT cosmeal
[2017-12-10] MEDS ORDERED: ALPRAZolam 0.25 MG TAB PO SCH (21:30)
[2017-12-11] MEDS: NACL ISO OSM IVPB SCH (02:51)
[2017-12-11] MEDS: FLUCONAZOLE IVPB SCH (02:51)
[2017-12-11] MEDS: ADMIXTURE FEE IVPB SCH (02:51)
[2017-12-11] MEDS: Levothyroxine 150 MCG TAB PO SCH (04:37)
[2017-12-11 04:57] LABS: Anion Gap 15 mmol/L (10-20); BUN (Urea Nitrogen) 55 mg/dL (9.8-20.1); Calc. Creatinine Clearance 19 mL/min (70-130); Calcium 8.3 mg/dL (7.8-10.44); Carbon Dioxide 27 mmol/L (23-31); Chloride 95 mmol/L (98-107); Estimated GFR-MDRD 16; Glucose 110 mg/dL (83-110); Magnesium 2.8 mg/dL (1.6-2.6); Potassium 4.7 mmol/L (3.5-5.1); Sodium 132 mmol/L (136-145)
[2017-12-11 05:15] LABS: Mean Corpuscular HGB CONC 31.6 g/dL (32.0-36.0); Mean Corpuscular Hemoglobin 31.8 pg (27.0-31.0); Platelet Count 23 thou/uL (130-400); RBC Distribution Width 13.7 % (11.5-14.5); Red Blood Cell (RBC) Count 2.83 mill/uL (4.20-5.40); White Blood Cell (WBC) Count 17.1 thou/uL (4.8-10.8)
[2017-12-11 05:23] LABS: Band 6 % (5-11); Lymphocytes 9 % (21-51); MDiff Complete? YES; Macrocytosis SLIGHT = 6-15 cells (100X) (0-5/hpf); Monocytes 17 % (0-10); Myelocyte 2 % (0-0); Neutrophil 66 % (42-75); Nucleated RBC 1 % (0); PLT Morphology Comment Appears Decreased
[2017-12-11] MEDS ORDERED: Vancomycin HCl 750 MG in Sodium Chloride 0.9% 250 ML 250 ML IVPB SCH (06:00)
[2017-12-11] MEDS: Carvedilol 3.125 MG TAB PO SCH (09:24)
[2017-12-11] MEDS: Famotidine 40 MG/4 ML VIAL SLOW IVP SCH (09:25)
[2017-12-11] MEDS: Escitalopram Oxalate 10 mg Tablet PO SCH (09:25)
[2017-12-11] MEDS: Rosuvastatin 5 MG TAB PO SCH (09:25)
[2017-12-11] MEDS: Nystatin Powder 15 GM BOT TOP SCH ×2 (09:25→20:18)
[2017-12-11 10:05] LABS: Base Excess (BEa) 3.4 mEq/L (0 (+/-) 2.5); CO2 Tension 56.9 mmHg (35.0-45.0); Hematocrit-ABG 33.3 % (36.0-47.0); Hemoglobin (Hb) 8.9 g/dL (12.0-16.0); O2 Tension (PaO2) 82.5 mmHg (80.0-100.0); pH, Arterial 7.34 (7.35-7.45)
[2017-12-11 10:06] LABS: Calcium, Ionized 1.1 mmol/L (1.12-1.30); Puncture Site RRA
[2017-12-11 10:07] LABS: ALV-art Gradient 46.015 (0-20)
[2017-12-11] MEDS: Ziprasidone 20 MG VIAL IM PRN (12:26)
--- NOTE | 2017-12-11 13:41 | PDOC.PN ---
- Subjective Encounter Start Date: 12/11/17 Encounter Start Time: 12:10 Pt agitated overnight, got Xanax 0.25 and got worse, no F/C, no N/V/d/C. cried out all night, little sleep. TP awake, hollering out, not answering questions. ROs not obtainable - Objective Resuscitation Status: Resuscitation Status DNR:Do Not Resuscitate MAR Reviewed: Yes Vital Signs & Weight: Vital Signs (12 hours) Temp Pulse Resp BP Pulse Ox 12/11/17 11:30 161/83 H 12/11/17 08:00 98.1 F 78 22 H 98 12/11/17 06:32 72 20 100 12/11/17 04:00 97.7 F 95 22 H 142/73 H 95 Weight Admit Weight 184 lb 8 oz Weight 195 lb 8.8 oz I&O: 12/10/17 12/11/17 12/12/17 06:59 06:59 06:59 Intake Total 285 270 Output Total 875 200 Balance -590 70 Result Diagrams: 12/11/17 03:38 12/11/17 03:38 Phys Exam - Physical Examination confused, delerious, yelling out "ohhhh" HEENT: PERRLA, moist MMs, sclera anicteric, oral pharynx no lesions Neck: no nodes, no JVD, supple, full ROM Respiratory: no wheezing, no rales, no rhonchi, clear to auscultation bilateral Cardiovascular: RRR, no significant murmur, no rub Gastrointestinal: soft, non-tender, no distention, positive bowel sounds Musculoskeletal: pulses present, edema present Neurological: moves all 4 limbs Lymphatic: no nodes Skin: no rash, normal turgor, cap refill <2 seconds Dx/Plan (1) UTI (urinary tract infection) Status: Acute Qualifiers: Urinary tract infection type: acute cystitis Hematuria presence: without hematuria Qualified Code(s): N30.00 - Acute cystitis without hematuria Comment: yeast and GNR so far. follow up ID and sensitivity. On cefepime and fluc. CCM (2) Metabolic encephalopathy Code(s): G93.41 - METABOLIC ENCEPHALOPATHY Status: Acute Comment: worse today after Xanax overnight, Geodon IM ordered q4h PRN (3) Sepsis Code(s): A41.9 - SEPSIS, UNSPECIFIED ORGANISM Status: Acute Qualifiers: Sepsis type: sepsis due to unspecified organism Qualified Code(s): A41.9 - Sepsis, unspecified organism Comment: GNR adn yeast. covered. labs back to baseline except Cr (4) MDS (myelodysplastic syndrome) Code(s): D46.9 - MYELODYSPLASTIC SYNDROME, UNSPECIFIED Status: Chronic Comment: followed by Dr Escobar, Rivka Celaya has seen, following. WBC pre- admit at 18.8, 18.9 today (5) ILYA (acute kidney injury) Code(s): N17.9 - ACUTE KIDNEY FAILURE, UNSPECIFIED Status: Acute Comment: IV fluids may need to be restarted, watch. Dr Hoffman following, Cr rise has slowed. - Plan cont current plan of care, plan discussed w/ family, continue antibiotics, PT/OT , respiratory therapy, DVT proph w/SCDs * .
[2017-12-11] MEDS: Cefepime 2 GM, Syringe 2.5 ML in Sodium Chloride 0.9% 10 ML SLOW IVP SCH (14:22)
[2017-12-11] MEDS: Carvedilol 6.25 MG TAB PO SCH (17:25)
[2017-12-12] MEDS: ADMIXTURE FEE IVPB SCH (01:27)
[2017-12-12] MEDS: NACL ISO OSM IVPB SCH (01:27)
[2017-12-12] MEDS: FLUCONAZOLE IVPB SCH (01:27)
[2017-12-12] MEDS: Levothyroxine 150 MCG TAB PO SCH (05:05)
[2017-12-12 05:40] LABS: Hemoglobin 9.8 g/dL (12.0-16.0); Mean Corpuscular HGB CONC 30.3 g/dL (32.0-36.0); Mean Corpuscular Hemoglobin 31.2 pg (27.0-31.0); Mean Platelet Volume 13.3 fL (7.4-10.4); Platelet Count 28 thou/uL (130-400); RBC Distribution Width 13.9 % (11.5-14.5); Red Blood Cell (RBC) Count 3.15 mill/uL (4.20-5.40); White Blood Cell (WBC) Count 19.6 thou/uL (4.8-10.8)
[2017-12-12 06:06] LABS: ALT (SGPT) Less than 7 U/L (8-55); AST (SGOT) 12 U/L (5-34); Albumin 3.3 g/dL (3.4-4.8); Alkaline Phosphatase 65 U/L (40-150); Anion Gap 13 mmol/L (10-20); BUN (Urea Nitrogen) 55 mg/dL (9.8-20.1); Bilirubin, Total 0.5 mg/dL (0.2-1.2); Calc. Creatinine Clearance 21 mL/min (70-130); Calcium 8.6 mg/dL (7.8-10.44); Carbon Dioxide 30 mmol/L (23-31); Chloride 97 mmol/L (98-107); Estimated GFR-MDRD 18; Globulin 3.1 g/dL (2.4-3.5); Glucose 120 mg/dL (83-110); Magnesium 2.8 mg/dL (1.6-2.6); Potassium 4.8 mmol/L (3.5-5.1); Protein, Total 6.4 g/dL (6.0-8.3); Sodium 135 mmol/L (136-145)
[2017-12-12 06:12] LABS: Band 3 % (5-11); Large Platelets SLIGHT; Lymphocytes 6 % (21-51); MDiff Complete? YES; Monocytes 18 % (0-10); Neutrophil 73 % (42-75); PLT Morphology Comment Appears Decreased
--- NOTE | 2017-12-12 08:44 | PRG ---
DATE OF SERVICE: 12/11/2017 SUBJECTIVE: The patient was seen and examined, very somnolent, not responding much of any questionin g. Noted with the following. PHYSICAL EXAMINATION: VITAL SIGNS: Afebrile with temperature 98.1, pulse 78, respiratory rate 22, O2 sat 98% with blood pr essure 161/83. HEENT: Unremarkable. CARDIOVASCULAR SYSTEM: First and second heart sounds were heard. RESPIRATORY SYSTEM: Clear to auscultation anteriorly. DIGESTIVE SYSTEM: Revealed an obese abdomen. EXTREMITIES: Show no significant peripheral edema. NEUROLOGIC: Revealed the patient is very somnolent but no lateralizing sign. LABORATORY INVESTIGATION: Showed hemoglobin of 9, white count 17,000, platelets 23,000. Chemistry s howed sodium of 132, BUN of 55, creatinine 2.0. Blood gas showed pH 7.34 with pCO2 of 56.9. IMPRESSION: 1. Mental status change likely in the context of acute delirium now, compounded by the use of anxiol ytic. 2. Acute on chronic kidney disease. 3. Hypercapnic respiratory acidosis. 4. Urinary tract infection. PLAN: 1. We will suggest avoiding anxiolytics and narcotics in this patient as this will worsen the deliri ous state; however, psychotropic medications could be used in the face of agitation. 2. Consider pulmonary consult to evaluate the hypercapnic respiratory acidosis versus the use of BiP AP to address this acid base disorder. 3. Renally dose all medications. 4. Avoid potentially nephrotoxic agents. 5. Further management to be dependent on the clinical course.
[2017-12-12] MEDS: Famotidine 40 MG/4 ML VIAL SLOW IVP SCH (10:00)
[2017-12-12] MEDS: Escitalopram Oxalate 10 mg Tablet PO SCH (10:34)
[2017-12-12] MEDS: Carvedilol 6.25 MG TAB PO SCH ×3 (10:34→17:39)
[2017-12-12] MEDS: Rosuvastatin 5 MG TAB PO SCH (10:35)
[2017-12-12] MEDS: Ziprasidone 20 MG VIAL IM PRN ×2 (10:41→17:35)
--- NOTE | 2017-12-12 11:24 | PRG ---
DATE OF SERVICE: 12/12/2017 The patient was seen and examined, still not communicating much. PHYSICAL EXAMINATION: VITAL SIGNS: Afebrile with temperature 98.4, pulse 92, respiratory rate 20, O2 sat 97%, blood pressu re 152/83. HEENT: Unremarkable with moist oral mucosa. Neck was supple. CARDIOVASCULAR: First and second heart sounds were heard. RESPIRATORY: Reveals some wheeze. DIGESTIVE: Revealed an obese abdomen. EXTREMITIES: No significant peripheral edema. NEUROLOGIC: Revealed a patient that is still very somnolent. IMPRESSION: 1. Hypoactive delirium. 2. Urinary tract infection. 3. Acute on chronic kidney disease with marginal improvement. 4. Advanced age. PLAN: 1. Continue current renal supportive measures. 2. Avoid sedating this patient so much given the presence of respiratory acidosis which I do believe has to do with hypoventilation. 3. Further management to be dependent on the clinical course.
[2017-12-12] MEDS: Cefepime 2 GM, Syringe 2.5 ML in Sodium Chloride 0.9% 10 ML SLOW IVP SCH (13:48)
[2017-12-12] MEDS: Nystatin Powder 15 GM BOT TOP SCH ×2 (13:49→21:23)
--- NOTE | 2017-12-12 14:03 | PDOC.PN ---
- Subjective Encounter Start Date: 12/12/17 Encounter Start Time: 14:01 Ms. Doe was seen today in follow-up of acute respiratory failure. She was non- verbal an unable to express her concerns. She was moaning, and had audible wheezing. - Objective Resuscitation Status: Resuscitation Status DNR:Do Not Resuscitate MAR Reviewed: Yes Vital Signs & Weight: Vital Signs (12 hours) Temp Pulse Resp BP BP Pulse Ox 12/12/17 12:00 96.2 F L 12/12/17 10:34 153/86 H 12/12/17 09:00 98.4 F 92 20 97 12/12/17 08:00 98.4 F 92 20 153/86 H 97 Weight Admit Weight 184 lb 8 oz Weight 191 lb 5.78 oz I&O: 12/11/17 12/12/17 12/13/17 06:59 06:59 06:59 Intake Total 270 50 Output Total 200 Balance 70 50 Result Diagrams: 12/12/17 05:06 12/12/17 05:06 Phys Exam - Physical Examination HEENT: PERRLA, sclera anicteric, oral pharynx no lesions Respiratory: wheezing present + rales at both bases Cardiovascular: RRR, no significant murmur, no rub Gastrointestinal: soft, non-tender, positive bowel sounds Musculoskeletal: edema present trace edema Dx/Plan (1) Acute respiratory failure with hypoxemia Code(s): J96.01 - ACUTE RESPIRATORY FAILURE WITH HYPOXIA Status: Acute (2) ILYA (acute kidney injury) Code(s): N17.9 - ACUTE KIDNEY FAILURE, UNSPECIFIED Status: Acute Comment: IV fluids may need to be restarted, watch. Dr Hoffman following, Cr rise has slowed. (3) Metabolic encephalopathy Code(s): G93.41 - METABOLIC ENCEPHALOPATHY Status: Acute Comment: worse today after Xanax overnight, Geodon IM ordered q4h PRN (4) UTI (urinary tract infection) Status: Acute Qualifiers: Urinary tract infection type: acute cystitis Hematuria presence: without hematuria Qualified Code(s): N30.00 - Acute cystitis without hematuria Comment: yeast and GNR so far. follow up ID and sensitivity. On cefepime and fluc. CCM (5) MDS (myelodysplastic syndrome) Code(s): D46.9 - MYELODYSPLASTIC SYNDROME, UNSPECIFIED Status: Chronic Comment: followed by Dr Escobar, Rivka Celaya has seen, following. WBC pre- admit at 18.8, 18.9 today (6) Acute on chronic diastolic heart failure Code(s): I50.33 - ACUTE ON CHRONIC DIASTOLIC (CONGESTIVE) HEART FAILURE Status : Acute - Plan * Acute on chronic diastolic heart failure- she is clinically volume overloaded this afternoon- will give an additional dose of Lasix * UTI- urine culture is growing a gram negative adi with less than 5K CFU. I spoke with the microbiologist, and they will run an I&D on this specimen, but it will take an addition 2-3 days. She is currently on Meropenem, and will continue this for now. She is on day 4. * Myelodysplastic Syndrome- stable * HTN - blood pressure is overall stable * CKD- stable. * Metabolic Encephalopathy- likely from UTI with sepsis- unchanged- continue antibiotics- likely with treat with 7 days of Meropenem
[2017-12-12] MEDS ORDERED: Furosemide 40 MG/4 ML VIAL SLOW IVP SCH (14:15)
[2017-12-13] MEDS: ADMIXTURE FEE IVPB SCH (02:18)
[2017-12-13] MEDS: FLUCONAZOLE IVPB SCH (02:18)
[2017-12-13] MEDS: NACL ISO OSM IVPB SCH (02:18)
[2017-12-13 05:31] LABS: Albumin 3.3 g/dL (3.4-4.8); Anion Gap 17 mmol/L (10-20); BUN (Urea Nitrogen) 55 mg/dL (9.8-20.1); BUN/Creatinine Ratio 22.73; Calc. Creatinine Clearance 22 mL/min (70-130); Calcium 8.9 mg/dL (7.8-10.44); Carbon Dioxide 29 mmol/L (23-31); Chloride 97 mmol/L (98-107); Estimated GFR-MDRD 19; Glucose 101 mg/dL (83-110); Potassium 4.3 mmol/L (3.5-5.1); Sodium 139 mmol/L (136-145)
[2017-12-13] MEDS: Escitalopram Oxalate 10 mg Tablet PO SCH (08:00)
[2017-12-13] MEDS: Carvedilol 6.25 MG TAB PO SCH ×2 (08:00→17:21)
[2017-12-13] MEDS: Famotidine 40 MG/4 ML VIAL SLOW IVP SCH (09:06)
[2017-12-13] MEDS: Nystatin Powder 15 GM BOT TOP SCH ×2 (09:10→21:49)
--- NOTE | 2017-12-13 09:19 | RAD ---
KUB: Date: 12-13-17 Comparison: None. History: Evaluate Dobbhoff feeding tube. FINDINGS: A supine frontal radiograph centered in the upper abdomen and lower chest is provided. There is bilat eral opacity within the lung bases suggesting bilateral pleural effusions, left greater than right, a nonspecific airspace disease. There is a Dobbhoff feeding tube extending into the upper abdomen located at the junction of the ches t and abdomen. It appears kinked and may be located within the gastric fundus or the distal esophagus . Recommend advancing the Dobbhoff feeding tube and re-imaging. There is severe degenerative change o f the imaged lumbar spine and lower thoracic spine. IMPRESSION: Increased density in the lung bases as above. Dobbhoff feeding tube appears kinked over the level of the diaphragmatic hiatus. Please see above discussion. POS: [facility]
--- NOTE | 2017-12-13 10:57 | RAD ---
ABDOMEN ONE VIEW: History: Dobbhoff placement. Comparison: Earlier same day. FINDINGS: The Dobbhoff tube is within the gastric body with the tip curled upon itself. IMPRESSION: Dobbhoff tube in gastric body. Recommend retraction and re-advancement. Remainder of the findings are unchanged. POS: OFF
--- NOTE | 2017-12-13 14:27 | PDOC.PN ---
- Subjective Encounter Start Date: 12/13/17 Encounter Start Time: 14:23 Ms. Doe was seen today in follow-up. Her daughters are at the bedside. She is a little more awake, with her eyes open. She however is moaning, and could be in pain. - Objective Resuscitation Status: Resuscitation Status DNR:Do Not Resuscitate MAR Reviewed: Yes Vital Signs & Weight: Vital Signs (12 hours) Temp Pulse Resp BP Pulse Ox 12/13/17 08:00 97.9 F 95 16 95 12/13/17 07:59 97.9 F 95 16 122/78 99 12/13/17 04:11 97.9 F 83 20 162/67 H 100 Weight Admit Weight 184 lb 8 oz Weight 189 lb 13.088 oz I&O: 12/12/17 12/13/17 12/14/17 06:59 06:59 06:59 Intake Total 50 150 Balance 50 150 Result Diagrams: 12/12/17 05:06 12/13/17 04:12 Phys Exam - Physical Examination HEENT: PERRLA Respiratory: no rales, no rhonchi, wheezing present Cardiovascular: RRR, no significant murmur, no rub Gastrointestinal: soft, non-tender, positive bowel sounds Musculoskeletal: edema present trace pedal edema Dx/Plan (1) Acute respiratory failure with hypoxemia Code(s): J96.01 - ACUTE RESPIRATORY FAILURE WITH HYPOXIA Status: Acute (2) ILYA (acute kidney injury) Code(s): N17.9 - ACUTE KIDNEY FAILURE, UNSPECIFIED Status: Acute Comment: IV fluids may need to be restarted, watch. Dr Hoffman following, Cr rise has slowed. (3) Metabolic encephalopathy Code(s): G93.41 - METABOLIC ENCEPHALOPATHY Status: Acute Comment: worse today after Xanax overnight, Geodon IM ordered q4h PRN (4) UTI (urinary tract infection) Status: Acute Qualifiers: Urinary tract infection type: acute cystitis Hematuria presence: without hematuria Qualified Code(s): N30.00 - Acute cystitis without hematuria Comment: yeast and GNR so far. follow up ID and sensitivity. On cefepime and fluc. CCM (5) MDS (myelodysplastic syndrome) Code(s): D46.9 - MYELODYSPLASTIC SYNDROME, UNSPECIFIED Status: Chronic Comment: followed by Dr Rivka Escobar has seen, following. WBC pre- admit at 18.8, 18.9 today (6) Acute on chronic diastolic heart failure Code(s): I50.33 - ACUTE ON CHRONIC DIASTOLIC (CONGESTIVE) HEART FAILURE Status : Acute - Plan * Metabolic Encephalopathy- this is worsened due to the patient not having any nutrition in several days- will go ahead and use the DHT which is coiled in the stomach, and place on Reglan for a few days scheduled then prn, hopefully it will float to the Duodenum * UTI- continue Meropenem for now, await culture results to ensure the Meropemen was effective * Acute on chronic diastolic heart failure- improved * Delirium- could be worsened by pain- will treat with Tylenol as needed- if the Delirium has not improved after a few days of tube feeding, and after a completion of 7 days of antibiotics, and holding sedating medications- then will need to re-evaluate * CKD- stable * MDS- stable * .
--- NOTE | 2017-12-13 15:00 | RAD ---
KUB: HISTORY: An 87-year-old female with a history of Dobhoff tube placement. COMPARISON: 12/13/2017 at 10:19 a.m. FINDINGS: Again noted is a Dobhoff tube, which is somewhat coiled back on itself. It extends into the body of the stomach. The remainder of the abdomen is stable. IMPRESSION: Dobhoff tube extends into the region of the body of the stomach with the tip coiled back on itself. POS: [facility]
[2017-12-13] MEDS: Acetaminophen 325 MG/10.15 ML UDCUP PER TUBE PRN (15:41)
[2017-12-13] MEDS: Cefepime 2 GM, Syringe 2.5 ML in Sodium Chloride 0.9% 10 ML SLOW IVP SCH (15:42)
[2017-12-13] MEDS: Rosuvastatin 5 MG TAB PO SCH (17:21)
[2017-12-13] MEDS ORDERED: Ziprasidone 20 MG VIAL IM PRN (19:14)
[2017-12-13] MEDS: Levothyroxine 150 MCG TAB PO SCH (20:14)
--- NOTE | 2017-12-13 20:15 | PRG ---
DATE OF SERVICE: 12/13/2017 SUBJECTIVE: The patient was seen and examined and noted with the following. OBJECTIVE: VITAL SIGNS: Afebrile, temperature 97.9, pulse 95, respiratory rate 16, blood pressure 122/78 and O2 sat 95% on 2 liters. HEENT: Unremarkable for Dobbhoff tube in place. CARDIOVASCULAR SYSTEM: First and second heart sounds were heard. RESPIRATORY SYSTEM: Clear to auscultation anteriorly. DIGESTIVE SYSTEM: Revealed an obese abdomen. EXTREMITIES: Showed no significant peripheral edema. NEUROLOGIC: Revealed a patient that is much more alert today. LABORATORY INVESTIGATIONS: Showed a creatinine down to 2.42, BUN of 55. CBC showed a platelet of 28 ,000 and a white count of 19,600. IMPRESSION: 1. Acute on chronic kidney disease, which seems to be improving. 2. Delirium, which initially started as hyperactive delirium; however, status post medication. Alicia ent now pretty much converted into hypoactive delirium. 3. Bicytopenia in the context of myelodysplastic syndrome. 4. Urinary tract infection, on treatment. PLAN: 1. I do not think the urine cultures are going to grow out anything as the patient has been on antib iotic given as an outpatient for some days. 2. We will discontinue fluconazole. 3. Limit Geodon usage to probably discontinue this upright given the significant hypoactive delirium in the face of toxic metabolic encephalopathy and possible medication effect. 4. Renally dose all medications and avoid potentially nephrotoxic agents. 5. Further management to be dependent on the clinical course.
[2017-12-13] MEDS: Metoclopramide HCl 10 MG/2 ML VIAL IVP SCH (21:49)
[2017-12-14 04:46] LABS: Anion Gap 15 mmol/L (10-20); BUN (Urea Nitrogen) 67 mg/dL (9.8-20.1); Calc. Creatinine Clearance 19 mL/min (70-130); Calcium 8.8 mg/dL (7.8-10.44); Carbon Dioxide 31 mmol/L (23-31); Chloride 98 mmol/L (98-107); Estimated GFR-MDRD 16; Glucose 200 mg/dL (83-110); Potassium 3.7 mmol/L (3.5-5.1); Sodium 140 mmol/L (136-145)
[2017-12-14] MEDS: Acetaminophen 325 MG/10.15 ML UDCUP PER TUBE PRN ×2 (05:19→16:45)
[2017-12-14] MEDS: Metoclopramide HCl 10 MG/2 ML VIAL IVP SCH ×3 (05:20→20:58)
[2017-12-14] MEDS: Levothyroxine 150 MCG TAB PO SCH (05:20)
[2017-12-14 08:32] VITALS: BMI 33.5
[2017-12-14] MEDS: Carvedilol 6.25 MG TAB PO SCH ×2 (09:31→16:45)
[2017-12-14] MEDS: Rosuvastatin 5 MG TAB PO SCH (09:31)
[2017-12-14] MEDS: Escitalopram Oxalate 10 mg Tablet PO SCH (09:32)
[2017-12-14] MEDS: Nystatin Powder 15 GM BOT TOP SCH ×2 (09:34→20:59)
[2017-12-14] MEDS: Famotidine 40 MG/4 ML VIAL SLOW IVP SCH (11:07)
[2017-12-14] MEDS: Cefepime 2 GM, Syringe 2.5 ML in Sodium Chloride 0.9% 10 ML SLOW IVP SCH (13:31)
--- NOTE | 2017-12-14 13:55 | PDOC.PN ---
- Subjective Encounter Start Date: 12/14/17 Encounter Start Time: 13:54 Subjective: seen and examined - Objective Resuscitation Status: Resuscitation Status DNR:Do Not Resuscitate Vital Signs & Weight: Vital Signs (12 hours) Temp Pulse Resp BP BP Pulse Ox 12/14/17 11:25 98.9 F 83 16 151/79 H 100 12/14/17 09:59 99 F 98 20 98 12/14/17 09:31 122/78 12/14/17 07:18 99 F 98 20 171/83 H 98 Weight Admit Weight 184 lb 8 oz Weight 189 lb 2.506 oz I&O: 12/13/17 12/14/17 12/15/17 06:59 06:59 06:59 Intake Total 150 1000 Balance 150 1000 Result Diagrams: 12/12/17 05:06 12/14/17 03:23 Phys Exam - Physical Examination Constitutional: NAD HEENT: PERRLA, moist MMs, sclera anicteric, TM's clear Neck: no nodes, no JVD, supple, full ROM Respiratory: no wheezing, no rales, no rhonchi, clear to auscultation bilateral Cardiovascular: RRR, no significant murmur, no rub Gastrointestinal: soft, non-tender, no distention, positive bowel sounds Musculoskeletal: no edema, pulses present Neurological: non-focal, moves all 4 limbs Dx/Plan (1) ILYA (acute kidney injury) Code(s): N17.9 - ACUTE KIDNEY FAILURE, UNSPECIFIED Status: Acute Comment: IV fluids may need to be restarted, watch. Dr Hoffman following, Cr rise has slowed. (2) Acute on chronic diastolic heart failure Code(s): I50.33 - ACUTE ON CHRONIC DIASTOLIC (CONGESTIVE) HEART FAILURE Status : Acute (3) Acute respiratory failure with hypoxemia Code(s): J96.01 - ACUTE RESPIRATORY FAILURE WITH HYPOXIA Status: Acute (4) Metabolic encephalopathy Code(s): G93.41 - METABOLIC ENCEPHALOPATHY Status: Acute Comment: worse today after Xanax overnight, Geodon IM ordered q4h PRN (5) Sepsis Code(s): A41.9 - SEPSIS, UNSPECIFIED ORGANISM Status: Acute Qualifiers: Sepsis type: sepsis due to unspecified organism Qualified Code(s): A41.9 - Sepsis, unspecified organism Comment: GNR adn yeast. covered. labs back to baseline except Cr (6) UTI (urinary tract infection) Status: Acute Qualifiers: Urinary tract infection type: acute cystitis Hematuria presence: without hematuria Qualified Code(s): N30.00 - Acute cystitis without hematuria Comment: yeast and GNR so far. follow up ID and sensitivity. On cefepime and fluc. CCM (7) MDS (myelodysplastic syndrome) Code(s): D46.9 - MYELODYSPLASTIC SYNDROME, UNSPECIFIED Status: Chronic Comment: followed by Dr Escobar, Rivka Celaya has seen, following. WBC pre- admit at 18.8, 18.9 today - Plan plan discussed w/ family, continue antibiotics, PT/OT, social media analyst, respiratory therapy On feeding tube -: Plan on D/c antimicrobials -: Klebsiella pneumonia senstive to cefepime -: Cefepime to be d/c ed tommorrow #03/31 -: Awaiting family's decision on dispo planning/destination * .
[2017-12-15] MEDS ORDERED: Acetaminophen 650 MG/20.3 ML UDCUP PER TUBE PRN (00:36)
[2017-12-15] MEDS ORDERED: Clopidogrel Bisulfate 75 MG TAB ONE (06:23)
[2017-12-15] MEDS: Levothyroxine 150 MCG TAB PO SCH ×2 (06:30→23:06)
[2017-12-15] MEDS: Metoclopramide HCl 10 MG/2 ML VIAL IVP SCH ×2 (06:30→13:36)
[2017-12-15] MEDS: Rosuvastatin 5 MG TAB PO SCH (08:36)
[2017-12-15] MEDS: Escitalopram Oxalate 10 mg Tablet PO SCH (08:37)
[2017-12-15] MEDS: Famotidine 40 MG/4 ML VIAL SLOW IVP SCH (08:37)
[2017-12-15] MEDS: Carvedilol 6.25 MG TAB PO SCH ×2 (08:37→15:54)
[2017-12-15] MEDS: Nystatin Powder 15 GM BOT TOP SCH ×2 (08:38→19:41)
--- NOTE | 2017-12-15 12:12 | PDOC.PN ---
- Subjective Encounter Start Date: 12/15/17 Encounter Start Time: 12:10 Subjective: Seen and examined -still moaning and quite somnolent - Objective Resuscitation Status: Resuscitation Status DNR:Do Not Resuscitate Vital Signs & Weight: Vital Signs (12 hours) Temp Pulse Resp BP BP Pulse Ox 12/15/17 08:37 91/57 L 12/15/17 08:25 98.4 F 63 16 91/57 L 100 12/15/17 08:00 98.4 F 63 16 100 Weight Admit Weight 184 lb 8 oz Weight 189 lb 9.561 oz I&O: 12/14/17 12/15/17 12/16/17 06:59 06:59 06:59 Intake Total 1000 310 Balance 1000 310 Result Diagrams: 12/12/17 05:06 12/14/17 03:23 Phys Exam - Physical Examination Constitutional: NAD HEENT: PERRLA, sclera anicteric Neck: no nodes, supple Respiratory: wheezing present Cardiovascular: RRR, no significant murmur, no rub Gastrointestinal: soft, non-tender, no distention Musculoskeletal: no edema Dx/Plan (1) ILYA (acute kidney injury) Code(s): N17.9 - ACUTE KIDNEY FAILURE, UNSPECIFIED Status: Acute Comment: IV fluids may need to be restarted, watch. Dr Hoffman following, Cr rise has slowed. (2) Acute on chronic diastolic heart failure Code(s): I50.33 - ACUTE ON CHRONIC DIASTOLIC (CONGESTIVE) HEART FAILURE Status : Acute (3) Acute respiratory failure with hypoxemia Code(s): J96.01 - ACUTE RESPIRATORY FAILURE WITH HYPOXIA Status: Acute (4) Metabolic encephalopathy Code(s): G93.41 - METABOLIC ENCEPHALOPATHY Status: Acute Comment: worse today after Xanax overnight, Geodon IM ordered q4h PRN (5) Sepsis Code(s): A41.9 - SEPSIS, UNSPECIFIED ORGANISM Status: Acute Qualifiers: Sepsis type: sepsis due to unspecified organism Qualified Code(s): A41.9 - Sepsis, unspecified organism Comment: GNR adn yeast. covered. labs back to baseline except Cr (6) UTI (urinary tract infection) Status: Acute Qualifiers: Urinary tract infection type: acute cystitis Hematuria presence: without hematuria Qualified Code(s): N30.00 - Acute cystitis without hematuria Comment: yeast and GNR so far. follow up ID and sensitivity. On cefepime and fluc. [facility] (7) MDS (myelodysplastic syndrome) Code(s): D46.9 - MYELODYSPLASTIC SYNDROME, UNSPECIFIED Status: Chronic Comment: followed by Dr Escobar, Rivka Celaya has seen, following. WBC pre- admit at 18.8, 18.9 today - Plan plan discussed w/ family, PT/OT, social research assistant, respiratory therapy cxr -: [place] [facility] [place] -: D/c all antimirobials * .
[2017-12-15 13:51] LABS: Albumin 3.2 g/dL (3.4-4.8); Anion Gap 14 mmol/L (10-20); BUN (Urea Nitrogen) 78 mg/dL (9.8-20.1); BUN/Creatinine Ratio 26.35; Calc. Creatinine Clearance 18 mL/min (70-130); Calcium 8.9 mg/dL (7.8-10.44); Carbon Dioxide 32 mmol/L (23-31); Chloride 99 mmol/L (98-107); Estimated GFR-MDRD 15; Glucose 156 mg/dL (83-110); Phosphorus 2.5 mg/dL (2.3-4.7); Potassium 3.7 mmol/L (3.5-5.1); Sodium 141 mmol/L (136-145)
--- NOTE | 2017-12-15 14:41 | RAD ---
1 VIEW CHEST: Date: 12/15/17 COMPARISON: 12/07/17. HISTORY: Wheezing. FINDINGS: 1 view chest redemonstrates cardiomegaly, pulmonary vascular congestion, and bibasilar opacities due to pleural and parenchymal change. Stable aeration of the lung. Stable linear densities in the right lung apex. There is no pneumothorax. Atherosclerosis of aorta is identified. Dobbhoff feeding tube te rminates in the epigastric region. IMPRESSION: No significant interval change. POS: JESSICA
[2017-12-15] MEDS ORDERED: Acetaminophen 650 MG Suppository PR PRN (23:14)
[2017-12-16] MEDS: Acetaminophen 650 MG Suppository PR PRN ×3 (04:40→13:26)
[2017-12-16] MEDS ORDERED: Famotidine 20 MG TAB PO SCH (09:00)
[2017-12-16] MEDS: Carvedilol 6.25 MG TAB PO SCH (09:01)
[2017-12-16] MEDS: Rosuvastatin 5 MG TAB PO SCH (09:02)
[2017-12-16] MEDS: Nystatin Powder 15 GM BOT TOP SCH (09:25)
[2017-12-16 13:35] VITALS: BP 170/69
[2017-12-16 13:36] VITALS: TEMP 98.3
--- NOTE | 2017-12-16 16:42 | DIS ---
PRIMARY CARE PHYSICIAN: Dr. Davenport. DATE OF ADMISSION: 12/07/2017 DATE OF DISCHARGE: 12/16/2017 DISCHARGE DISPOSITION: Home with home hospice. DISCHARGE DIAGNOSES: 1. Urinary tract infection with metabolic encephalopathy. 2. Myelodysplastic syndrome. 3. Chronic diastolic heart failure. 4. Hypertension. 5. Chronic kidney disease stage 3. 6. History of right posterior cerebral artery infarct. DISCHARGE MEDICATIONS: Include Senokot 1 tablet as needed, Crestor 5 mg at bedtime, Zofran 4 mg ever y 6 hours as needed, omeprazole 20 mg daily, multivitamin once a daily, magnesium 250 mg at bedtime, levothyroxine 150 mcg daily, escitalopram 10 mg daily, vitamin B12 at 1000 mcg daily, vitamin D3 at 1 000 units twice a day, Zyrtec 10 mg as needed, carvedilol 6.25 mg twice a day, and Tylenol Arthritis. CODE STATUS: DNR. ALLERGIES: ALPRAZOLAM and CODEINE. PROCEDURES DONE DURING ADMISSION: The patient had an echocardiogram, in which the ejection fraction was estimated at 50% to 55%. There was moderate to severe tricuspid regurgitation. There was a hypo kinetic motion of the septal wall in the left ventricle. The patient had a CT scan of the brain show ing an old posterior middle cerebral artery infarct. There was no acute infarct noted or bleed. The patient had a CT scan of the abdomen and pelvis showing moderate bilateral pleural effusions and marcelino e basilar pulmonary parenchymal changes, and it was consistent with cardiomegaly and congestive heart failure, and there are multiple gallstones in the gallbladder. The patient had a lower extremity ve nous Doppler, which was negative for DVT. HOSPITAL COURSE: Ms. Doe is an 87-year-old female that was brought to the hospital for shortness o f breath and hypoxemia. She was found to be in acute on chronic diastolic heart failure. She was se en by Cardiology and was diuresed. Her hospital course was complicated by a toxic metabolic encephal opathy. It is unclear whether this was due to medications or to urinary tract infection. Urine cult ures grew eventually grew Klebsiella. However, it was in less than 5000 colony forming units. We re quested the microbiologist run the sensitivities anyway, and it grew Klebsiella, which was pansensiti ve. She had already received a 7-day course of cefepime. Unfortunately, despite holding any sedatin g medications, offering her tube feeds via Dobbhoff tube, and complete treatment with antibiotics, th e patient's confusion never improved. The family opted to take the patient home with hospice as it i s unclear whether or not the encephalopathy will improve and her overall prognosis with the heart navarro lure, chronic kidney disease, and myelodysplasia. The prognosis is extremely poor. The patient was therefore discharged home with hospice on 12/16/2017.
--- NOTE | 2017-12-31 00:24 | EKG ---
Test Reason : AMS Blood Pressure : / mmHG Vent. Rate : 103 BPM Atrial Rate : 163 BPM P-R Int : 000 ms QRS Dur : 076 ms QT Int : 354 ms P-R-T Axes : 000 034 164 degrees QTc Int : 463 ms Atrial fibrillation with rapid ventricular response Low voltage QRS Cannot rule out Anterior infarct , age undetermined T wave abnormality, consider lateral ischemia or digitalis effect Abnormal ECG Confirmed by EUGENE NEFF ([id number]), editor magazine RICARDO HU ([id number]) on 12/31/2017 12:24:02 AM Referred By: JOSEFINA Confirmed By:EUGENE NEFF
== END 2017-12-16 15:09 | disposition hospice, home (50) | DRG 871 ==
LOC: ERS 14:05 → 2NO 17:24 → T4-A 12-10 10:13
PROVIDERS: ADMIT Emergency Medicine; ATTEND Emergency Medicine
DX: A41.9 Sepsis, unspecified organism (principal); J96.01 Acute respiratory failure with hypoxia; G93.41 Metabolic encephalopathy; I50.33 Acute on chronic diastolic (congestive) heart failure; N17.9 Acute kidney failure, unspecified; N39.0 Urinary tract infection, site not specified; I24.8 Other forms of acute ischemic heart disease; E87.2 Acidosis; E87.1 Hypo-osmolality and hyponatremia; I13.0 Hypertensive heart and chronic kidney disease with heart failure and stage 1 through stage 4 chronic kidney disease, or unspecified chronic kidney disease; Z66 Do not resuscitate; R65.20 Severe sepsis without septic shock; D46.9 Myelodysplastic syndrome, unspecified; N18.3 Chronic kidney disease, stage 3 (moderate); B96.1 Klebsiella pneumoniae [K. pneumoniae] as the cause of diseases classified elsewhere; M19.90 Unspecified osteoarthritis, unspecified site; H91.90 Unspecified hearing loss, unspecified ear; I25.10 Atherosclerotic heart disease of native coronary artery without angina pectoris; E78.5 Hyperlipidemia, unspecified; E03.9 Hypothyroidism, unspecified; E87.5 Hyperkalemia; I48.2 Chronic atrial fibrillation; Z86.73 Personal history of transient ischemic attack (TIA), and cerebral infarction without residual deficits; Z87.891 Personal history of nicotine dependence; Z85.42 Personal history of malignant neoplasm of other parts of uterus; Z88.5 Allergy status to narcotic agent; Z79.899 Other long term (current) drug therapy
CPT/HCPCS: 36415; 36416; 51702; 70450; 71045; 74018; 74176; 80048; 80053; 80069; 80202; 81003; 81015; 82274; 82553; 82805; 83605; 83690; 83735; 83880; 84484; 84550; 85025; 85049; 85060; 85300; 85362; 85379; 85384; 85610; 85730; 86850; 86900; 86901; 87040; 87077; 87086; 87186; 93005; 93306; 93798; 93970; 94640; 96374; 96375; A4216; G8978-GP-CN; G8979-GP-CL; G8987-GO-CN; G8988-GO-CL; G8996-GN-CJ; G8997-GN-CH; J0692; J1450; J1940; J2185; J2405; J2765; J3370; J3486; J7050; J7620